=== PATIENT | male | born 1970 | race Caucasian/White ===

== ENCOUNTER → 2016-10-07 | Outpatient (CLI) | payer BC ==
[2016-10-07 10:09] LABS: HEMATOCRIT 41.7 % (42-52); MEAN CELL VOLUME 86.5 fL (80-100); MEAN CORPUSCULAR HEMOGLOBIN 29.3 pg (25-34); MEAN CORPUSCULAR HGB CONC 33.8 g/dl (32-36); MEAN PLATELET VOLUME 9.9 fL (7.4-10.4); PLATELET COUNT 241 K/uL (130-400); RED BLOOD COUNT 4.82 M/uL (4.7-6.1); WHITE BLOOD COUNT 5.88 K/uL (4.8-10.8)
[2016-10-07 10:50] LABS: ALT/SGPT 25 U/L (12-78); AST/SGOT 13 U/L (15-37); BLOOD UREA NITROGEN 18 mg/dl (7-18); BUN/CREATININE RATIO 17.9 (10-20); CALCIUM 8.8 mg/dl (8.5-10.1); CARBON DIOXIDE 29 mmol/L (21-32); CHLORIDE 105 mmol/L (98-107); GLUCOSE 93 mg/dl (70-99); SODIUM 138 mmol/L (136-145)
[2016-10-07 10:55] LABS: ALKALINE PHOSPHATASE 44 U/L (45-117); C-REACTIVE PROTEIN 0.94 mg/dl (0-0.29); CHOLESTEROL 130 mg/dl (0-200); CHOLESTEROL/HDL RATIO 3.3; HDL CHOLESTEROL 40 mg/dl; LDL CHOLESTEROL CALCULATED 80 mg/dl; TRIGLYCERIDES 52 mg/dl (0-150); VERY LOW DENSITY LIPOPROT CALC 10 mg/dl
== END | disposition home or self-care (01) ==
LOC: C.LAB1850 09:11
PROVIDERS: ATTEND Internal Medicine
DX: Z00.00 Encounter for general adult medical examination without abnormal findings (principal); K50.90 Crohn's disease, unspecified, without complications

== ENCOUNTER 2017-06-07 09:27 | Emergency (ER) | payer BC ==
[~2017-06-07] VITALS: Ht 182.9 cm; Wt 91.5 kg
[2017-06-07 09:37] VITALS: TEMP 36.8; Ht 182.9 cm; Wt 91.5 kg
[2017-06-07] MEDS ORDERED: SODIUM CHLORIDE 0.9% 500ML 500 ML IV STA (09:54)
[2017-06-07] MEDS ORDERED: PNT250 PO (10:01)
[2017-06-07] MEDS ORDERED: TRAZ50TA35 PO (10:01)
[2017-06-07] MEDS ORDERED: LANS30CA12 PO (10:01)
[2017-06-07] MEDS ORDERED: CITA20TA4 PO (10:01)
[2017-06-07] MEDS ORDERED: MoRPHine SULFATE 4 MG/ML 1 ML CARP\\VIAL IV STA ×2 (10:13→12:36)
[2017-06-07] MEDS ORDERED: ONDANSETRON INJ 2 MG/ML 2 ML VIAL IV STA (10:13)
[2017-06-07] MEDS ORDERED: OPTIRAY 320 IV PRN (10:15)
--- NOTE | 2017-06-07 10:21 | EMERGENCY ROOM VISIT NOTE ---
History Report prepared by Neela: Samanta Lopez Under the Supervision of: Dr. Britni Adams M.D. First contact with patient: 09:44 Chief Complaint: RECTAL PAIN Stated Complaint: ANAL ABSCESS History of Present Illness The patient is a 46 year old male who presents to the Emergency Room with complaints of persistent rectal pain that began one month ago. He currently rates his discomfort as a 10/10 in severity. The patient reports that he has a history of Crohn's Disease. He states that one month ago he developed rectal pain but states that one week ago he saw his PCP one week ago for his pain. The patient states that his PCP diagnosed the patient with a thrombosed hemorrhoid and was going to set the patient up for an ultrasound. He states that due to miscommunications he did not have the ultrasound. The patient states that one day ago his pain worsened. He states that his pain is worse with lying flat. The patient denies any history of perirectal abscesses. He denies any previous abdominal surgeries. Source of History: patient Onset: one month ago Position: other (rectal) Symptom Intensity: 10/10 Timing: other (persistent) Modifying Factors (Worsening): other (lying flat) Review of Systems See HPI for pertinent positives & negatives. A total of 10 systems reviewed and were otherwise negative. Past Medical & Surgical Medical Problems: (1) Asthma (2) Crohn's disease Family History Cancer Heart disease Hypertension Social History Smoking Status: Never Smoker Smokeless Tobacco Use: No Alcohol Use: occasionally Marital Status: Housing Status: lives with significant other Occupation Status: employed Current/Historical Medications Scheduled Ciprofloxacin Hcl (Cipro), 500 MG PO BID Citalopram Hydrobromide (Citalopram Hydrobromide), 20 MG PO DAILY Lansoprazole (Prevacid), 30 MG PO DAILY Mesalamine Cont Rel (Pentasa), 4 CAP PO QID Metronidazole (Flagyl), 500 MG PO TID Sulfa/Trimethoprim (Bactrim Ds 800MG/160MG), 1 TAB PO BID Trazodone Hcl (Trazodone), 50 MG PO DAILY Scheduled PRN Tramadol (Ultram), 1 TABS PO Q6 PRN for Pain Allergies Coded Allergies: Acetaminophen (Unverified Adverse Reaction, Intermediate, NAUSEA/VOMITTING , 06/07/17) Oxycodone (Unverified Adverse Reaction, Intermediate, NAUSEA/VOMITTING, ) Uncoded Allergies: NKA (Allergy, Unknown, 12/01/02) Physical Exam Vital Signs Date Time Temp Pulse Resp B/P (MAP) Pulse Ox O2 Delivery O2 Flow Rate FiO2 06/07/17 15:03 88 16 134/76 98 06/07/17 14:12 60 16 125/76 97 Room Air 06/07/17 12:19 67 16 130/78 97 06/07/17 10:19 62 20 122/62 96 Room Air 06/07/17 09:37 36.8 68 16 137/78 99 Room Air Physical Exam Vital signs reviewed. General: Well-appearing male, in no significant distress. HEENT: No scleral icterus, PERRLA, neck supple. Atraumatic. Cardiovascular: Regular rate and rhythm, no extra sounds. Pulmonary: Clear to auscultation bilaterally, normal work of breathing. Abdomen: Soft, nontender, nondistended, positive bowel sounds. Rectal: Normal rectal mucosa, with swelling at the 6 o'clock position, mild fluctuance appreciated. No significant erythema, no drainage, tender to palpation. Musculoskeletal: Atraumatic, no peripheral edema. Neurologic: Patient awake alert and oriented x 3, full strength in all 4 extremities. Cranial nerves 2 through 12 grossly intact. Skin: Warm, dry, no rash Medical Decision & Procedures ER Provider Diagnostic Interpretation: CT results as stated below per my review and radiologist interpretation: CT PELVIS W/IV CONT ONLY (CT) CT DOSE: 208.09 mGy.cm CLINICAL HISTORY: Anal abscess. TECHNIQUE: Helical images were acquired in the transverse plane. The patient was scanned following administration of 90 cc Optiray 320. A dose lowering technique was utilized adhering to the principles of ALARA. COMPARISON STUDY: April 2010 FINDINGS: There is no pathologic bowel dilatation. There is no pathologic pelvic lymphadenopathy. There is no evidence of aortic or iliac artery dilatation. No bladder abnormalities are visualized. There is a midline 35 x 32 by 23 mm posterior perianal fluid collection consistent with an abscess. IMPRESSION: 1. 35 x 32 x 23 mm midline perianal fluid collection, consistent with the clinical history of an abscess. Electronically signed by: Richard Glass M.D. 06/07/2017 11:56 AM Dictated Date/Time: 06/07/2017 11:52 AM Laboratory Results 06/07/17 00:00 Red Blood Count 4.49, Mean Corpuscular Volume 87.5, Mean Corpuscular Hemoglobin 29.8, Mean Corpuscular Hemoglobin Concent 34.1, Mean Platelet Volume 8.9, Neutrophils (%) (Auto) 84.7, Lymphocytes (%) (Auto) 5.3, Monocytes (%) (Auto) 9.3, Eosinophils (%) (Auto) 0.3, Basophils (%) (Auto) 0.1, Neutrophils # (Auto) 9.52, Lymphocytes # (Auto) 0.59, Monocytes # (Auto) 1.04, Eosinophils # (Auto) 0.03, Basophils # (Auto) 0.01 06/07/17 00:00 Test 06/07/17 00:00 White Blood Count 11.22 K/uL (4.8-10.8) Red Blood Count 4.49 M/uL (4.7-6.1) Hemoglobin 13.4 g/dL (14.0-18.0) Hematocrit 39.3 % (42-52) Mean Corpuscular Volume 87.5 fL (80-100) Mean Corpuscular Hemoglobin 29.8 pg (25-34) Mean Corpuscular Hemoglobin Concent 34.1 g/dl (32-36) Platelet Count 264 K/uL (130-400) Mean Platelet Volume 8.9 fL (7.4-10.4) Neutrophils (%) (Auto) 84.7 % Lymphocytes (%) (Auto) 5.3 % Monocytes (%) (Auto) 9.3 % Eosinophils (%) (Auto) 0.3 % Basophils (%) (Auto) 0.1 % Neutrophils # (Auto) 9.52 K/uL (1.4-6.5) Lymphocytes # (Auto) 0.59 K/uL (1.2-3.4) Monocytes # (Auto) 1.04 K/uL (0.11-0.59) Eosinophils # (Auto) 0.03 K/uL (0-0.5) Basophils # (Auto) 0.01 K/uL (0-0.2) RDW Standard Deviation 44.3 fL (36.4-46.3) RDW Coefficient of Variation 13.7 % (11.5-14.5) Immature Granulocyte % (Auto) 0.3 % Immature Granulocyte # (Auto) 0.03 K/uL (0.00-0.02) Anion Gap 7.0 mmol/L (3-11) Est Creatinine Clear Calc Drug Dose 102.2 ml/min Estimated GFR () 106.6 Estimated GFR (Non- 91.9 BUN/Creatinine Ratio 13.2 (10-20) Calcium Level 9.0 mg/dl (8.5-10.1) Total Bilirubin 0.4 mg/dl (0.2-1) Direct Bilirubin 0.1 mg/dl (0-0.2) Aspartate Amino Transf (AST/SGOT) 15 U/L (15-37) Alanine Aminotransferase (ALT/SGPT) 22 U/L (12-78) Alkaline Phosphatase 64 U/L (45-117) Total Protein 7.6 gm/dl (6.4-8.2) Albumin 3.3 gm/dl (3.4-5.0) Laboratory results per my review. Medications Administered Medications (Trade) Dose Ordered Sig/Ishmael Route Start Time Stop Time Status Last Admin Dose Admin Sodium Chloride 500 ml @ 999 mls/hr Q31M STAT IV 06/07/17 09:54 06/07/17 10:24 DC 06/07/17 09:54 999 MLS/HR Morphine Sulfate (MoRPHine SULFATE INJ) 4 mg NOW STAT IV 06/07/17 10:13 06/07/17 10:14 DC 06/07/17 10:21 4 MG Ondansetron HCl (Zofran Inj) 4 mg NOW STAT IV 06/07/17 10:13 06/07/17 10:14 DC 06/07/17 10:20 4 MG Ciprofloxacin/ Dextrose (Cipro / D5W) 400 mg NOW STAT IV 06/07/17 12:35 06/07/17 12:37 DC 06/07/17 12:53 400 MG Metronidazole (Flagyl / Nss) 500 mg NOW STAT IV 06/07/17 12:35 06/07/17 12:37 DC 06/07/17 12:52 500 MG Morphine Sulfate (MoRPHine SULFATE INJ) 4 mg NOW STAT IV 06/07/17 12:36 06/07/17 12:37 DC 06/07/17 12:53 4 MG ED Course 0954: Ordered Sodium Chloride 500 ml @ 999 mls/hr IV. 1006: Past medical records reviewed. The patient was evaluated in room A4B. A complete history and physical examination was performed. 1013: Ordered Zofran Inj 4 mg IV, Morphine Sulfate 4 mg IV. 1219: I discussed the patients case with General Gerry Garland PA-C. He states that someone will come down to the department see the patient. 1234: I reevaluated the patient and General Surgery is at the patients bedside. 1235: Ordered Flagyl/Nss 500 mg IV, Cipro/D5W 400 mg IV, Morphine Sulfae 4 mg IV. 1245: Ordered Lidocaine HCl 20 ml INFIL. 1335: I reevaluated the patient and he is resting comfortably after his I&D. I spoke to general surgery and the patient is okay to be discharged shortly. Medical Decision The patient is a 46 year old male who presents to the ED with complaints of rectal pain. Differentials include perirectal abscess, thrombosed hemorrhoid, rectal fissure, rectal prolapse, fistula. This pt was evaluated and appeared to be in some discomfort. IV access was obtained and lab work was drawn. Pt was placed on the classroom monitor. IV morphine and zofran were administered. CT pelvis was performed and reveals a perirectal abscess, no fistula appreciated. Due to location of the abscess, general surgery was consulted. IV cipro and flagyl was given. Dr Batres drained the abscess at the bedside. Pt was given a Rx for cipro, flagyl and ultram. He will f/u as directed with surgery tomorrow. Pt will return to the ED for worsening of symptoms or any medical concerns. Medication Reconcilliation Current Medication List: was personally reviewed by me Consults Time Called: 1216 Consulting Physician: General Gerry Garland PA-C Returned Call: 1219 I discussed the patients case with General Gerry Garland PA-C. He states that someone will come down to the department see the patient. Impression Primary Impression: Perirectal abscess Scribe Attestation The scribe's documentation has been prepared under my direction and personally reviewed by me in its entirety. I confirm that the note above accurately reflects all work, treatment, procedures, and medical decision making performed by me. Departure Information Dispostion Home / Self-Care Prescriptions Ciprofloxacin Hcl (CIPRO) 500 Mg Tab 500 MG PO BID, #14 TAB Prov: Britni Adams M.D. 06/07/17 Metronidazole (Flagyl) 500 Mg Tab 500 MG PO TID for 7 Days, #21 TAB Prov: Britni Adams M.D. 06/07/17 Tramadol (Ultram) 50 Mg Tab 1 TABS PO Q6 Y for Pain, #20 TAB Prov: Britni Adams M.D. 06/07/17 Referrals Regine Zheng M.D. (PCP) Clemente Batres M.D. Forms HOME CARE DOCUMENTATION FORM, IMPORTANT VISIT INFORMATION, WORK / SCHOOL INSTRUCTIONS Patient Instructions My [facility] Additional Instructions Diagnosis: Perirectal abscess Flagyl 500 mg 3 times daily for 7 days. Do not drink alcohol while on this medication. Cipro 500 mg twice daily for 7 days. Continue sitz baths as needed. Wound care as directed by Dr. Batres in the emergency department. Ultram 1 tab every 6 hours as needed for pain. Follow-up with surgery as directed. Return to the emergency department for worsening of symptoms or any medical concerns.
[2017-06-07 10:36] LABS: HEMATOCRIT 39.3 % (42-52); MEAN CELL VOLUME 87.5 fL (80-100); MEAN CORPUSCULAR HEMOGLOBIN 29.8 pg (25-34); MEAN CORPUSCULAR HGB CONC 34.1 g/dl (32-36); MEAN PLATELET VOLUME 8.9 fL (7.4-10.4); PLATELET COUNT 264 K/uL (130-400); RED BLOOD COUNT 4.49 M/uL (4.7-6.1); WHITE BLOOD COUNT 11.22 K/uL (4.8-10.8)
[2017-06-07 10:55] LABS: BASO % 0.1 %; BASO ABS # 0.01 K/uL (0-0.2); COMPLETE YES; EOS % 0.3 %; IG% 0.3 %; LYMPH % 5.3 %; LYMPH ABS # 0.59 K/uL (1.2-3.4); MONO % 9.3 %; NEUT % 84.7 %
[2017-06-07 10:56] LABS: BUN/CREATININE RATIO 13.2 (10-20); CREATININE 0.97 mg/dl (0.60-1.40)
--- NOTE | 2017-06-07 11:58 | DIAGNOSTIC IMAGING REPORT ---
CT PELVIS W/IV CONT ONLY (CT) CT DOSE: 208.09 mGy.cm CLINICAL HISTORY: Anal abscess. TECHNIQUE: Helical images were acquired in the transverse plane. The patient was scanned following administration of 90 cc Optiray 320. A dose lowering technique was utilized adhering to the principles of ALARA. COMPARISON STUDY: April 2010 FINDINGS: There is no pathologic bowel dilatation. There is no pathologic pelvic lymphadenopathy. There is no evidence of aortic or iliac artery dilatation. No bladder abnormalities are visualized. There is a midline 35 x 32 by 23 mm posterior perianal fluid collection consistent with an abscess. IMPRESSION: 1. 35 x 32 x 23 mm midline perianal fluid collection, consistent with the clinical history of an abscess. Electronically signed by: Richard Glass M.D. 06/07/2017 11:56 AM Dictated Date/Time: 06/07/2017 11:52 AM
[2017-06-07] MEDS ORDERED: SULF800T23 PO (12:20)
[2017-06-07] MEDS ORDERED: METRONIDAZOLE 500MG / 100ML NSS IV STA (12:35)
[2017-06-07] MEDS ORDERED: CIPROFLOXACIN 400MG / 200ML D5W IV STA (12:35)
[2017-06-07] MEDS ORDERED: XYLOCAINE 1%/SOD BICARB 20 ML VIAL INFIL ONE (12:45)
--- NOTE | 2017-06-07 12:54 | Medical Consult ---
Consultation Date of Consultation: Jun 07, 2017. Attending Physician: History of Present Illness 46 y/o male presents to the ER today due to rectal pain. States it has been going on for roughly a month. It has been bringing him some pretty significant discomfort. Patient states the area is hot and painful to the touch, worse when laying on it. He saw his PCP approximately 1 week ago and was scheduled to have an ultrasound which did not follow through. He was prescribed PO Bactrim. States he has taken 3 doses so far. Patient has never experienced this problem before. Denies previous abdominal surgery. Denies fever, chills or drainage. Patient feels this has gotten worse since its onset. He has not noticed any improvement since starting the bactrim. States he last ate two pieces of toast around 7 am this morning. PMH significant for crohn's disease. Family History Cancer Heart disease Hypertension Social History Smoking Status: Never Smoker Smokeless Tobacco Use: No Marital Status: Housing Status: lives with significant other Occupation Status: employed Allergies Coded Allergies: Acetaminophen (Unverified Adverse Reaction, Intermediate, NAUSEA/VOMITTING , 06/07/17) Oxycodone (Unverified Adverse Reaction, Intermediate, NAUSEA/VOMITTING, ) Uncoded Allergies: NKA (Allergy, Unknown, 12/01/02) Current Inpatient Medications Current Inpatient Medications Medications (Trade) Dose Ordered Sig/Ishmael Route Start Time Stop Time Status Last Admin Dose Admin Ioversol (Optiray 320) 125 ml UD PRN IV 06/07/17 10:15 06/11/17 10:14 Review of Systems Constitutional: No fever, No chills, No sweats Abdomen: No diarrhea, No constipation Integumentary: + problem reported (localized tenderness in madhu-rectal area.) Physical Exam Date Time Temp Pulse Resp B/P (MAP) Pulse Ox O2 Delivery O2 Flow Rate FiO2 06/07/17 12:19 67 16 130/78 97 06/07/17 10:19 62 20 122/62 96 Room Air 06/07/17 09:37 36.8 68 16 137/78 99 Room Air General Appearance: WD/WN, no apparent distress Head: normocephalic, atraumatic Eyes: normal inspection Neck: trachea midline Abdomen/GI: + tenderness (6 O'Clock madhu-rectal area - TTP, swelling and erythema - without drainage.) Neurologic/Psych: alert, normal mood/affect, oriented x 3 Skin: normal color, warm/dry, no rash Laboratory Results Last 24 Hours Test 06/07/17 00:00 White Blood Count 11.22 K/uL Red Blood Count 4.49 M/uL Hemoglobin 13.4 g/dL Hematocrit 39.3 % Mean Corpuscular Volume 87.5 fL Mean Corpuscular Hemoglobin 29.8 pg Mean Corpuscular Hemoglobin Concent 34.1 g/dl Platelet Count 264 K/uL Mean Platelet Volume 8.9 fL Neutrophils (%) (Auto) 84.7 % Lymphocytes (%) (Auto) 5.3 % Monocytes (%) (Auto) 9.3 % Eosinophils (%) (Auto) 0.3 % Basophils (%) (Auto) 0.1 % Neutrophils # (Auto) 9.52 K/uL Lymphocytes # (Auto) 0.59 K/uL Monocytes # (Auto) 1.04 K/uL Eosinophils # (Auto) 0.03 K/uL Basophils # (Auto) 0.01 K/uL RDW Standard Deviation 44.3 fL RDW Coefficient of Variation 13.7 % Immature Granulocyte % (Auto) 0.3 % Immature Granulocyte # (Auto) 0.03 K/uL Sodium Level 136 mmol/L Potassium Level 4.0 mmol/L Chloride Level 103 mmol/L Carbon Dioxide Level 26 mmol/L Anion Gap 7.0 mmol/L Blood Urea Nitrogen 13 mg/dl Creatinine 0.97 mg/dl Est Creatinine Clear Calc Drug Dose 102.2 ml/min Estimated GFR () 106.6 Estimated GFR (Non- 91.9 BUN/Creatinine Ratio 13.2 Random Glucose 102 mg/dl Calcium Level 9.0 mg/dl Total Bilirubin 0.4 mg/dl Direct Bilirubin 0.1 mg/dl Aspartate Amino Transf (AST/SGOT) 15 U/L Alanine Aminotransferase (ALT/SGPT) 22 U/L Alkaline Phosphatase 64 U/L Total Protein 7.6 gm/dl Albumin 3.3 gm/dl Assessment & Plan Madhu-rectal abscess First episode of madhu-rectal abscess NPO at this time, IV antibiotics started. Spoke with patient about need for I&D along with continued antibiotic therapy. Discussed performing at bedside vs. in the OR - Patient would prefer to have the procedure performed at bedside if possible. Will discuss findings with Dr. Batres to determine procedural setting. Please contact with questions or concerns.
[2017-06-07] MEDS ORDERED: METR-163 PO (14:03)
[2017-06-07] MEDS ORDERED: CIPR-255 PO (14:03)
[2017-06-07] MEDS ORDERED: TRAM-10 PO (14:03)
[2017-06-07 15:03] VITALS: BP 134/76; PULSE 88; O2SAT 98
== END 2017-06-07 15:04 | disposition home or self-care (01) ==
LOC: C.EDB 09:30 → C.EDA 15:04
DX: K61.1 Rectal abscess (principal); K50.90 Crohn's disease, unspecified, without complications; J45.909 Unspecified asthma, uncomplicated; Z82.49 Family history of ischemic heart disease and other diseases of the circulatory system; Z79.899 Other long term (current) drug therapy

== ENCOUNTER → 2017-10-19 | Day surgery (SDC) | payer BC ==
[2017-10-11 09:48] VITALS: BMI 28.0
[~2017-10-19] VITALS: Ht 182.9 cm; Wt 95.5 kg
[~2017-10-19] MED LIST: CITA20TA4 PO; FLUT50SP45 NAE; LANS30CA12 PO; LIDOCAINE HCL 2% 2 ML VIAL (20MG/ML) ONE; PNT250 PO; PROPOFOL IV EMULSION 10 MG/ML 20 ML VIAL IV ONE; SODIUM CHLORIDE 0.9% 500ML 500 ML IV ONE; TRAZ50TA35 PO
[2017-10-19 08:02] VITALS: Ht 182.9 cm; Wt 95.5 kg
--- NOTE | 2017-10-19 08:35 | Endo History and Physical ---
History & Physical Date of Service: Oct 19, 2017. Chief Complaint: HX OF CROHNS RECTAL BLEEDING FISTULA Referring Physician: DR ANGELA PARIS History of Present Illness 46 yo CM who presents for colonoscopy secondary to Crohn's disease with anal fistula. Past Surgical History Hx Cardiac Surgery: No Hx Internal Defibrillator: No Hx Pacemaker: No Hx Abdominal Surgery: Yes (HERNIA 2014) Hx of Implantable Prosthesis: No Hx Post-Op Nausea and Vomiting: No Hx Cancer Surgery: No Hx Thoracic Surgery: No Hx Orthopedic: No Hx Urinary Tract Surgery: No Family History Polyp Social History Smoking Status: Never Smoker Hx Substance Use: No Hx Alcohol Use: Yes (BEERS 3-4 TIMES A WEEK) Allergies Coded Allergies: Acetaminophen (Verified Adverse Reaction, Intermediate, NAUSEA/VOMITTING, 10/19/17) Oxycodone (Verified Adverse Reaction, Intermediate, NAUSEA/VOMITTING, 10/19) Current Medications Reported Home Medications Medications Dose Route/Sig Max Daily Dose Days Date Category Allergy Nasal [place] 24 Ho (Fluticasone Propionate (Nasal)) 50 Mcg/Act Spr 2 [place] SUYAPA DIRECTED 10/11/17 Reported Trazodone (Trazodone HCl) 50 Mg Tab 50 Mg PO DAILY 06/07/17 Reported Prevacid (Lansoprazole) 30 Mg Capcr 30 Mg PO DAILY 06/07/17 Reported Citalopram Hydrobromide 20 Mg Tab 20 Mg PO DAILY 90 06/07/17 Reported Pentasa (Mesalamine) 250 Mg Caper 4 Cap PO QID 06/07/17 Reported Vital Signs Weight (Kilograms): 95.45 Height (Feet): 6 Height (Inches): 0 Date Time Temp Pulse Resp B/P (MAP) Pulse Ox O2 Delivery O2 Flow Rate FiO2 10/19/17 08:07 36.4 60 18 131/78 (95) 99 Room Air Physical Exam General Appearance: WD/WN, no apparent distress Respiratory/Chest: Auscultation: breath sounds normal Cardiovascular: Heart Auscultation: RRR Abdomen: Bowel Sounds: normal Inspection & Palpation: soft, non-distended, no tenderness, guarding & rebound Assessment and Plan Assessment: 46 yo CM who presents for colonoscopy secondary to Crohn's disease with anal fistula. Plan: Proceed with colonoscopy.
--- NOTE | 2017-10-19 09:03 | Discharge Instructions ---
Endoscopy Patient Instructions Date / Procedure(s) Performed Oct 19, 2017. Colonoscopy Allergy Information Coded Allergies: Acetaminophen (Verified Adverse Reaction, Intermediate, NAUSEA/VOMITTING, 10/19/17) Oxycodone (Verified Adverse Reaction, Intermediate, NAUSEA/VOMITTING, 10/19) Discharge Date / Findings Oct 19, 2017. Crohn's ileocolitis s/p biopsies of the ileum and colon Colon polyp Diverticulosis Anal fistula Medication Instructions OK to resume all medications today as prescribed Reported Home Medications Medications Dose Route/Sig Max Daily Dose Days Date Category Allergy Nasal [place] 24 Ho (Fluticasone Propionate (Nasal)) 50 Mcg/Act Spr 2 [place] SUYAPA DIRECTED 10/11/17 Reported Trazodone (Trazodone HCl) 50 Mg Tab 50 Mg PO DAILY 06/07/17 Reported Prevacid (Lansoprazole) 30 Mg Capcr 30 Mg PO DAILY 06/07/17 Reported Citalopram Hydrobromide 20 Mg Tab 20 Mg PO DAILY 90 06/07/17 Reported Pentasa (Mesalamine) 250 Mg Caper 4 Cap PO QID 06/07/17 Reported Provider Instructions Activity Restrictions - No exercising or heavy lifting for 24 hours. - Do not drink alcohol the day of the procedure. - Do not drive a car or operate machinery until the day after the procedure. - Do not make any important decisions or sign important papers in 24 hours after the procedure. Following Day: - Return to full activity which may include returning to work/school. Diet Start your diet with liquids and light foods (jello, soup, juice, toast). Then eat your usual diet if not nauseated. Treatment For Common After Affects For mild abdominal pain, bloating, or excessive gas: - Rest - Eat lightly - Lie on right side Follow-Up Information Follow-up with DR ANGELA PARIS as scheduled Anesthesia Information What You Should Know You have had a procedure that required some medicine to reduce anxiety and discomfort. This treatment is called moderate sedation. After receiving the treatment, you may be sleepy, but you will be able to breathe on your own. The effects of the treatment may last for several hours. Follow these instructions along with Activity/Diet recommendations noted above: * Do NOT do anything where dizziness or clumsiness would be dangerous. * Rest quietly at home today, then you can be up and about tomorrow. * Have a responsible person stay with you the rest of today. * You may have had an I.V. today. If so, you may take the dressing off later today. Recommendations Call your doctor if: * Trouble breathing * Continuous vomiting for more than 24 hours * Temperature above 101 degrees * Severe abdominal pain or bloating * Pain not relieved by pain medicine ordered * There is increased drainage or redness from any incision * A large amount of rectal bleeding greater than 2-3 tablespoons. (If you had a polyp/s removed or have hemorrhoids, a small amount of blood - from the rectum is to be expected.) * You have any unanswered questions or concerns. IN THE EVENT OF A SERIOUS EMERGENCY, GO TO THE NEAREST EMERGENCY ROOM Your discharge instructions were prepared by provider Sebastian Gilmore. Patient Instructions Signature Page Myron Ellsworth Patient (or Guardian) Signature/Date: I have read and understand the instructions given to me by my caregivers. Caregiver/RN/Doctor Signature/Date: The above-named patient and/or guardian has received patient instructions on this date. + Original Patient Signature Page (only) stays with chart. Please make copy for patient.
--- NOTE | 2017-10-19 09:17 | Anesthesiology Progress Note ---
Anesthesia Post Op Note Date & Time Oct 19, 2017 at 09:16 Vital Signs Pain Intensity: 0 Vital Signs Past 12 Hours Date Time Temp Pulse Resp B/P (MAP) Pulse Ox O2 Delivery O2 Flow Rate FiO2 10/19/17 08:07 36.4 60 18 131/78 (95) 99 Room Air Notes Mental Status: alert / awake / arousable, participated in evaluation Pt Amnestic to Procedure: Yes Nausea / Vomiting: adequately controlled Pain: adequately controlled Airway Patency, RR, SpO2: stable & adequate BP & HR: stable & adequate Hydration State: stable & adequate Anesthetic Complications: no major complications apparent
[2017-10-19 09:35] VITALS: BP 112/65; PULSE 57; O2SAT 99
--- NOTE | 2017-10-19 11:34 | GI REPORT ---
Patient Name: Myron Ellsworth Procedure Date: 10/19/2017 8:36 AM Date of : 1970 Admit Type: Outpatient Age: 46 Gender: Male Attending MD: Sebastian Gilmore DO Procedure: Colonoscopy Providers: Sebastian Gilmore DO Referring MD: Leon Tineo Indications: Disease activity assessment of Crohn's disease of the small bowel and colon Medicines: Monitored Anesthesia Care Complications: No immediate complications. Estimated Blood Loss: Estimated blood loss: none. Procedure: Pre-Anesthesia Assessment: - Prior to the procedure, a History and Physical was performed, and patient medications and allergies were reviewed. The patient's tolerance of previous anesthesia was also reviewed. The risks and benefits of the procedure and the sedation options and risks were discussed with the patient. All questions were answered, and informed consent was obtained. Prior Anticoagulants: The patient has taken no previous anticoagulant or antiplatelet agents. ASA Grade Assessment: II - A patient with mild systemic disease. After reviewing the risks and benefits, the patient was deemed in satisfactory condition to undergo the procedure. After I obtained informed consent, the scope was passed under direct vision. Throughout the procedure, the patient's blood pressure, pulse, and oxygen saturations were monitored continuously. The Scope was introduced through the anus and advanced to the terminal ileum. The colonoscopy was performed without difficulty. The patient tolerated the procedure well. The quality of the bowel preparation was good. The terminal ileum, ileocecal valve, appendiceal orifice, and rectum were photographed. Findings: The perianal exam findings include perianal fistula. The terminal ileum contained multiple three mm ulcers. No bleeding was present. Biopsies were taken with a cold forceps for histology. Inflammation characterized by aphthous ulcerations was found as small patches surrounded by normal mucosa in the hepatic flexure, in the ascending colon and at the cecum. This was mild in severity. Biopsies were taken with a cold forceps for histology. A 3 mm polyp was found in the sigmoid colon. The polyp was sessile. The polyp was removed with a cold snare. Resection was complete, but the polyp tissue was not retrieved. Multiple small-mouthed diverticula were found in the sigmoid colon. Non-bleeding internal hemorrhoids were found during retroflexion. The hemorrhoids were small. 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 - Multiple ulcers in the terminal ileum. Biopsied. - Crohn's disease, with ileitis and colitis. Inflammation was found in the hepatic flexure, in the ascending colon and at the cecum. This was mild in severity. Biopsied. - One 3 mm polyp in the sigmoid colon, removed with a cold snare. Complete resection. Polyp tissue not retrieved. - Diverticulosis in the sigmoid colon. - Non-bleeding internal hemorrhoids. Recommendation: - Resume previous diet. - Will need to start patient on Biologic therapy and will consider concominant Thiopurine therapy due to fistulizing disease as well as ileocolonic involvement - Repeat colonoscopy for surveillance based on pathology results. - Return to Dr. Tineo as previously scheduled. Sebastian Gilmore, DO 10/19/2017 9:17:53 AM This report has been signed electronically. Note Initiated On: 10/19/2017 8:36 AM Number of Addenda: 0 I attest to the content of the Intraoperative Record and orders documented therein, exceptions below {[id number]}
== END | disposition home or self-care (01) ==
LOC: C.GI 07:42
PROVIDERS: ATTEND Internal Medicine
DX: K50.90 Crohn's disease, unspecified, without complications (principal); K52.9 Noninfective gastroenteritis and colitis, unspecified; K64.8 Other hemorrhoids; D12.5 Benign neoplasm of sigmoid colon; K60.3 Anal fistula; K57.30 Diverticulosis of large intestine without perforation or abscess without bleeding; F32.9 Major depressive disorder, single episode, unspecified; Z88.6 Allergy status to analgesic agent; Z88.5 Allergy status to narcotic agent

== ENCOUNTER → 2017-10-26 | Outpatient (CLI) | payer BC ==
[~2017-10-26] MED LIST changes: -LIDOCAINE HCL 2% 2 ML VIAL (20MG/ML) ONE; -PROPOFOL IV EMULSION 10 MG/ML 20 ML VIAL IV ONE; -SODIUM CHLORIDE 0.9% 500ML 500 ML IV ONE
[2017-10-26 13:23] LABS: BASO % 0.5 %; BASO ABS # 0.03 K/uL (0-0.2); EOS % 4.1 %; EOS ABS # 0.26 K/uL (0-0.5); HEMATOCRIT 42.6 % (42-52); HEMOGLOBIN 14.2 g/dL (14.0-18.0); IG# 0.01 K/uL (0.00-0.02); LYMPH % 16.3 %; LYMPH ABS # 1.03 K/uL (1.2-3.4); MEAN CELL VOLUME 87.5 fL (80-100); MEAN CORPUSCULAR HEMOGLOBIN 29.2 pg (25-34); MEAN CORPUSCULAR HGB CONC 33.3 g/dl (32-36); MEAN PLATELET VOLUME 9.1 fL (7.4-10.4); MONO ABS # 0.44 K/uL (0.11-0.59); NEUT % 71.9 %; NEUT ABS # 4.53 K/uL (1.4-6.5); PLATELET COUNT 234 K/uL (130-400); RED CELL DISTRIBUTION WIDTH CV 13.8 % (11.5-14.5); RED CELL DISTRIBUTION WIDTH SD 44.1 fL (36.4-46.3)
[2017-10-26 13:36] LABS: ALBUMIN 4.1 gm/dl (3.4-5.0); BLOOD UREA NITROGEN 12 mg/dl (7-18); CALCIUM 9.2 mg/dl (8.5-10.1); CARBON DIOXIDE 28 mmol/L (21-32); CREATININE 1.11 mg/dl (0.60-1.40); GLUCOSE 96 mg/dl (70-99); POTASSIUM 4.2 mmol/L (3.5-5.1); SODIUM 134 mmol/L (136-145)
[2017-10-26 13:39] LABS: ALKALINE PHOSPHATASE 45 U/L (45-117); ALT/SGPT 26 U/L (12-78); AST/SGOT 21 U/L (15-37)
[2017-10-27 02:10] LABS: HEPATITIS A IGM TC 51813E NON-REACTIVE (NON-REACTIVE); HEPATITIS B CORE IGM TC51854R NON-REACTIVE (NON-REACTIVE)
== END | disposition home or self-care (01) ==
LOC: C.RAD1850 12:03 → C.LAB1850 12:03
PROVIDERS: ATTEND Physician Assistant
DX: K50.90 Crohn's disease, unspecified, without complications (principal)